=== PATIENT | male | born 1950 | race Caucasian/White ===

== ENCOUNTER 2022-04-16 21:21 | Inpatient (IN) | payer MEDICARE ==
[2022-04-16 21:45] LABS: #Eosinphils 0.1 thou/uL (0.0-0.7); #Lymphocytes 2.2 thou/uL (1.20-3.40); #Monocytes 0.9 thou/uL (0.11-0.59); #Neutrophils 16.7 thou/uL (1.40-6.50); %Eosinophils 0.5 % (0.0-10.0); %Lymphocytes 11.1 % (21.0-51.0); %Monocytes 4.5 % (0.0-10.0); Hemoglobin 13.2 g/dL (14.0-18.0); Mean Corpuscular HGB CONC 33.3 g/dL (32.0-36.0); Mean Corpuscular Hemoglobin 34.4 pg (27.0-31.0); Mean Platelet Volume 7.9 fL (7.4-10.4); Platelet Count 365 10x3/uL (130-400); Red Blood Cell (RBC) Count 3.84 mill/uL (4.70-6.10); White Blood Cell (WBC) Count 19.8 10x3/uL (4.8-10.8)
[2022-04-16] MEDS ORDERED: Dexamethasone 10 MG/ML VIAL ONE (22:00)
[2022-04-16] MEDS ORDERED: Vancomycin 1 GM/200 ML (FROZEN) BAG ONE (22:00)
[2022-04-16] MEDS ORDERED: Cefepime 2 GM VIAL ONE (22:00)
[2022-04-16 22:06] LABS: ALT (SGPT) 15 U/L (8-55); AST (SGOT) 24 U/L (5-34); Albumin 3.6 g/dL (3.4-4.8); Alkaline Phosphatase 68 U/L (40-110); Anion Gap 17 mmol/L (10-20); BUN (Urea Nitrogen) 22 mg/dL (8.4-25.7); Bilirubin, Total 0.7 mg/dL (0.2-1.2); Calc. Creatinine Clearance 0 mL/min (70-130); Calcium 9.3 mg/dL (7.8-10.44); Carbon Dioxide 24 mmol/L (23-31); Chloride 101 mmol/L (98-107); Estimated GFR 59; Globulin 4.1 g/dL (2.4-3.5); Glucose 135 mg/dL (80-115); Potassium 4.1 mmol/L (3.5-5.1); Protein, Total 7.7 g/dL (5.8-8.1); Sodium 138 mmol/L (136-145)
[2022-04-16 22:13] LABS: CK (CPK) 87 U/L (30-200); Lipase Less than 4 U/L (8-78)
[2022-04-16] MEDS ORDERED: Albuterol Sulfate 2.5 mg/3 ml Neb ONE (22:15)
[2022-04-16] MEDS ORDERED: Magnesium 2 GM/50 ML(in water) 2 GM in Premix Bag 1 BAG IVPB SCH (22:15)
[2022-04-16 22:30] LABS: Actual Bicarbonate (HCO3a) 23.8 mEq/L (22-28); Analyzer IN Cardio ER; Base Excess (BEa) -0.9 mEq/L (-2.0 to +3.0); CO2 Tension 39.5 mmHg (35.0-45.0); Calcium, Ionized (arterial) 1.12 mmol/L (1.12-1.30); Carboxyhemoglobin (COHb) 0.3 gm% (0.0-3.0); Hemoglobin (Hb) 11.1 g/dL (14.0-18.0); O2 Tension (PaO2), arterial 114.2 mmHg (> 80.0); Potassium - ABG Lab 3.37 mmol/L (3.70-5.30)
[2022-04-16 22:31] LABS: Puncture Site RBA
[2022-04-16 22:32] LABS: ALV-art Gradient 85.975 mmHg (0-20)
[2022-04-16 22:36] LABS: CKMB 2.2 ng/mL (0-6.6)
[2022-04-17 00:45] LABS: Lactic Acid 1.6 mmol/L (0.5-2.2)
[2022-04-17 00:57] LABS: SARS-CoV-2 NAA Rapid Test Not Detected (NotDetected)
[2022-04-17] MEDS ORDERED: Acetaminophen 325 MG TAB PO PRN (02:08)
[2022-04-17] MEDS ORDERED: Ondansetron PF 4 MG/2 ML Vial IVP PRN (02:08)
[2022-04-17 02:55] LABS: #Basophils 0.1 thou/uL (0.0-0.2); #Lymphocytes 0.2 thou/uL (1.20-3.40); #Monocytes 0.1 thou/uL (0.11-0.59); #Neutrophils 13.1 thou/uL (1.40-6.50); %Basophils 0.5 % (0.0-1.0); %Eosinophils 0.1 % (0.0-10.0); %Lymphocytes 1.6 % (21.0-51.0); %Monocytes 0.8 % (0.0-10.0); Hemoglobin 10.3 g/dL (14.0-18.0); Mean Corpuscular HGB CONC 31.3 g/dL (32.0-36.0); Mean Platelet Volume 7.7 fL (7.4-10.4); Platelet Count 262 10x3/uL (130-400); RBC Distribution Width 12.9 % (11.5-14.5); Red Blood Cell (RBC) Count 3.21 mill/uL (4.70-6.10); Troponin I 0.026 ng/mL (< 0.028); White Blood Cell (WBC) Count 13.5 10x3/uL (4.8-10.8)
[2022-04-17 03:37] LABS: Anion Gap 12 mmol/L (10-20); BUN (Urea Nitrogen) 20 mg/dL (8.4-25.7); Calc. Creatinine Clearance 0 mL/min (70-130); Calcium 7.9 mg/dL (7.8-10.44); Carbon Dioxide 24 mmol/L (23-31); Chloride 108 mmol/L (98-107); Estimated GFR 86; Glucose 162 mg/dL (80-115); Potassium 4.8 mmol/L (3.5-5.1); Sodium 139 mmol/L (136-145)
[2022-04-17 05:11] LABS: Troponin I 0.025 ng/mL (< 0.028)
[2022-04-17] MEDS ORDERED: methylPREDNISolone Sod Succ 40 MG VIAL ONE ×2 (05:59→16:04)
[2022-04-17] MEDS: methylPREDNISolone Sod Succ 40 MG VIAL IVP SCH ×2 (06:04→16:26)
[2022-04-17] MEDS ORDERED: Clopidogrel Bisulfate 75 MG TAB ONE (09:52)
[2022-04-17] MEDS ORDERED: Enoxaparin Sodium 40 MG/0.4 ML SYRINGE ONE (09:52)
[2022-04-17] MEDS: Enoxaparin Sodium 40 MG/0.4 ML SYRINGE SC SCH (10:00)
[2022-04-17] MEDS: Clopidogrel Bisulfate 75 MG TAB PO SCH (10:00)
[2022-04-17] MEDS ORDERED: Acetaminophen 325 MG TAB ONE (11:17)
[2022-04-17] MEDS ORDERED: Iopamidol-370 76% 500 ML 1 ML ONE (11:36)
[2022-04-17 16:36] LABS: Bilirubin Negative (Negative); Blood, Urine Trace (Negative); Glucose, Urine (Dipstick) 500 mg/dL (Negative); Ketone, Urine 15 mg/dL (Negative); Leukocyte Small (Negative); Nitrite Positive (Negative); Protein, Urine (Dipstick) Trace mg/dL (Neg-Trace); Specific Gravity, Urine 1.025 (1.005-1.030); Urobilinogen 0.2 mg/dL (Less than 2)
[2022-04-17 16:37] LABS: Clarity Hazy (Clear)
[2022-04-17 16:51] LABS: Bacteria/HPF 1+ HPF (None Seen); Squamous Epithelial 0-3 HPF (0-3); WBC/HPF 21-50 HPF (0-3)
[2022-04-17 17:00] LABS: Legionella Urinary Ag Negative (Negative); Strep pneumo Urine Ag NEGATIVE (NEGATIVE)
[2022-04-17] MEDS: Atorvastatin Calcium 40 MG TAB PO SCH (21:41)
[2022-04-18] MEDS: methylPREDNISolone Sod Succ 40 MG VIAL IVP SCH ×6 (00:09→23:26)
[2022-04-18] MEDS ORDERED: Ketorolac Tromethamine 30 MG/ML VIAL IVP SCH (02:00)
[2022-04-18 04:16] LABS: #Lymphocytes 0.5 thou/uL (1.20-3.40); #Monocytes 0.1 thou/uL (0.11-0.59); #Neutrophils 10.3 thou/uL (1.40-6.50); %Lymphocytes 4.1 % (21.0-51.0); %Monocytes 1.2 % (0.0-10.0); %Neutrophils 94.6 % (42.0-75.0); Hemoglobin 9.3 g/dL (14.0-18.0); Mean Corpuscular Hemoglobin 33.8 pg (27.0-31.0); Mean Platelet Volume 8.1 fL (7.4-10.4); Platelet Count 255 10x3/uL (130-400); Red Blood Cell (RBC) Count 2.74 mill/uL (4.70-6.10); White Blood Cell (WBC) Count 10.9 10x3/uL (4.8-10.8)
[2022-04-18 04:32] LABS: Anion Gap 13 mmol/L (10-20); BUN (Urea Nitrogen) 24 mg/dL (8.4-25.7); Calc. Creatinine Clearance 54 mL/min (70-130); Calcium 8.2 mg/dL (7.8-10.44); Carbon Dioxide 23 mmol/L (23-31); Chloride 107 mmol/L (98-107); Estimated GFR 97; Glucose 203 mg/dL (80-115); Potassium 3.6 mmol/L (3.5-5.1); Sodium 139 mmol/L (136-145)
[2022-04-18] MEDS: Clopidogrel Bisulfate 75 MG TAB PO SCH (08:30)
[2022-04-18] MEDS: Enoxaparin Sodium 40 MG/0.4 ML SYRINGE SC SCH (08:30)
[2022-04-18] MEDS: Nicotine 14 MG PATCH TD SCH (18:08)
[2022-04-18] MEDS: HYDROcodone/Acetaminophen 10/325 mg Tablet PO PRN (18:09)
[2022-04-18] MEDS: Mometasone/Formoterol 200/5 60 PUFF INH SCH (18:11)
[2022-04-18] MEDS: Ipratropium Bromide 2.5 ml Neb NEB SCH ×2 (18:12→22:51)
[2022-04-18] MEDS: Atorvastatin Calcium 40 MG TAB PO SCH (20:47)
[2022-04-19] MEDS: HYDROcodone/Acetaminophen 10/325 mg Tablet PO PRN ×4 (00:25→20:45)
[2022-04-19 05:06] LABS: #Lymphocytes 0.4 thou/uL (1.20-3.40); #Monocytes 0.2 thou/uL (0.11-0.59); #Neutrophils 11.3 thou/uL (1.40-6.50); %Eosinophils 0.1 % (0.0-10.0); %Lymphocytes 3.1 % (21.0-51.0); %Monocytes 1.4 % (0.0-10.0); %Neutrophils 95.4 % (42.0-75.0); Hemoglobin 9.1 g/dL (14.0-18.0); Mean Corpuscular HGB CONC 31.7 g/dL (32.0-36.0); Mean Platelet Volume 8.1 fL (7.4-10.4); Platelet Count 280 10x3/uL (130-400); Red Blood Cell (RBC) Count 2.83 mill/uL (4.70-6.10); White Blood Cell (WBC) Count 11.8 10x3/uL (4.8-10.8)
[2022-04-19 05:28] LABS: Anion Gap 10 mmol/L (10-20); BUN (Urea Nitrogen) 31 mg/dL (8.4-25.7); Calc. Creatinine Clearance 47 mL/min (70-130); Calcium 8.5 mg/dL (7.8-10.44); Carbon Dioxide 25 mmol/L (23-31); Chloride 105 mmol/L (98-107); Estimated GFR 90; Glucose 286 mg/dL (80-115); Sodium 136 mmol/L (136-145)
[2022-04-19] MEDS: methylPREDNISolone Sod Succ 40 MG VIAL IVP SCH ×4 (06:35→23:51)
[2022-04-19] MEDS: Ipratropium Bromide 2.5 ml Neb NEB SCH ×2 (07:30→14:05)
[2022-04-19] MEDS: Mometasone/Formoterol 200/5 60 PUFF INH SCH ×2 (07:37→20:46)
[2022-04-19] MEDS: Mirtazapine 15 MG TAB PO SCH (09:20)
[2022-04-19] MEDS: Clopidogrel Bisulfate 75 MG TAB PO SCH (09:20)
[2022-04-19] MEDS: Enoxaparin Sodium 30 MG/0.3 ML SYRINGE SC SCH (10:53)
[2022-04-19] MEDS: Nicotine 14 MG PATCH TD SCH (17:05)
[2022-04-19] MEDS: guaiFENesin/DM ER PO SCH (20:44)
[2022-04-19] MEDS: Atorvastatin Calcium 40 MG TAB PO SCH (20:44)
[2022-04-20] MEDS: HYDROcodone/Acetaminophen 10/325 mg Tablet PO PRN ×4 (03:52→23:22)
[2022-04-20] MEDS: methylPREDNISolone Sod Succ 40 MG VIAL IVP SCH ×4 (05:24→23:22)
[2022-04-20] MEDS: Mometasone/Formoterol 200/5 60 PUFF INH SCH ×2 (06:34→20:08)
[2022-04-20] MEDS: Enoxaparin Sodium 30 MG/0.3 ML SYRINGE SC SCH (08:41)
[2022-04-20] MEDS: Mirtazapine 15 MG TAB PO SCH (08:41)
[2022-04-20] MEDS: guaiFENesin/DM ER PO SCH ×2 (08:41→20:02)
[2022-04-20] MEDS: Clopidogrel Bisulfate 75 MG TAB PO SCH (08:41)
[2022-04-20] MEDS ORDERED: FLU VACC QS2022-23(65YR UP)/PF 240 MCG/0.7 ML SYRINGE IM ONE (09:00)
[2022-04-20] MEDS: Nicotine 14 MG PATCH TD SCH (16:29)
[2022-04-20 17:46] VITALS: BMI 14.6
[2022-04-20] MEDS: Atorvastatin Calcium 40 MG TAB PO SCH (20:02)
[2022-04-21] MEDS: HYDROcodone/Acetaminophen 10/325 mg Tablet PO PRN ×4 (05:20→22:38)
[2022-04-21] MEDS: methylPREDNISolone Sod Succ 40 MG VIAL IVP SCH ×2 (05:20→20:53)
[2022-04-21] MEDS: Mometasone/Formoterol 200/5 60 PUFF INH SCH ×2 (07:47→18:24)
[2022-04-21] MEDS: Clopidogrel Bisulfate 75 MG TAB PO SCH (08:35)
[2022-04-21] MEDS: Mirtazapine 15 MG TAB PO SCH (08:35)
[2022-04-21] MEDS: guaiFENesin/DM ER PO SCH ×2 (08:35→20:53)
[2022-04-21] MEDS: Enoxaparin Sodium 30 MG/0.3 ML SYRINGE SC SCH (08:35)
[2022-04-21] MEDS ORDERED: Megestrol Acetate 40 MG TAB PO SCH (12:00)
[2022-04-21] MEDS: Nicotine 14 MG PATCH TD SCH (16:57)
[2022-04-21] MEDS: Atorvastatin Calcium 40 MG TAB PO SCH (20:52)
[2022-04-21] MEDS: Megestrol Acetate 40 MG TAB PO SCH (20:53)
[2022-04-22] MEDS: HYDROcodone/Acetaminophen 10/325 mg Tablet PO PRN ×4 (05:16→23:58)
[2022-04-22] MEDS: Mometasone/Formoterol 200/5 60 PUFF INH SCH ×2 (07:05→19:08)
[2022-04-22] MEDS ORDERED: Dextrose 50% Abboject 50 ML SYRINGE SLOW IVP PRN (08:05)
[2022-04-22] MEDS ORDERED: Dextrose 5% in Water 1,000 ML IV PRN (08:05)
[2022-04-22] MEDS: Mirtazapine 15 MG TAB PO SCH (08:37)
[2022-04-22] MEDS: guaiFENesin/DM ER PO SCH ×2 (08:37→21:09)
[2022-04-22] MEDS: Clopidogrel Bisulfate 75 MG TAB PO SCH (08:37)
[2022-04-22] MEDS: Enoxaparin Sodium 30 MG/0.3 ML SYRINGE SC SCH (08:38)
[2022-04-22] MEDS: methylPREDNISolone Sod Succ 40 MG VIAL IVP SCH ×2 (08:38→21:09)
[2022-04-22] MEDS: Megestrol Acetate 40 MG TAB PO SCH ×2 (11:21→21:23)
[2022-04-22] MEDS: HumaLOG 300 UNITS/3 ML VIAL SC PRN ×3 (11:22→22:13)
[2022-04-22] MEDS: Nicotine 14 MG PATCH TD SCH (17:48)
[2022-04-22] MEDS: Atorvastatin Calcium 40 MG TAB PO SCH (21:09)
[2022-04-23 05:31] LABS: Anion Gap 10 mmol/L (10-20); BUN (Urea Nitrogen) 26 mg/dL (8.4-25.7); Calc. Creatinine Clearance 56 mL/min (70-130); Calcium 8.4 mg/dL (7.8-10.44); Carbon Dioxide 30 mmol/L (23-31); Chloride 101 mmol/L (98-107); Estimated GFR 97; Glucose 203 mg/dL (80-115); Magnesium 1.7 mg/dL (1.6-2.6); Potassium 4.9 mmol/L (3.5-5.1); Sodium 136 mmol/L (136-145)
[2022-04-23] MEDS: HYDROcodone/Acetaminophen 10/325 mg Tablet PO PRN ×3 (05:32→19:16)
[2022-04-23 05:35] LABS: Hemoglobin A1c 5.9 % (4.0-6.0)
[2022-04-23] MEDS: HumaLOG 300 UNITS/3 ML VIAL SC PRN ×3 (05:36→16:59)
[2022-04-23] MEDS: Mometasone/Formoterol 200/5 60 PUFF INH SCH ×2 (06:59→18:17)
[2022-04-23] MEDS: Mirtazapine 15 MG TAB PO SCH (09:20)
[2022-04-23] MEDS: Clopidogrel Bisulfate 75 MG TAB PO SCH (09:20)
[2022-04-23] MEDS: Enoxaparin Sodium 30 MG/0.3 ML SYRINGE SC SCH (09:21)
[2022-04-23] MEDS: guaiFENesin/DM ER PO SCH ×2 (09:21→20:59)
[2022-04-23] MEDS: methylPREDNISolone Sod Succ 40 MG VIAL IVP SCH (09:23)
[2022-04-23] MEDS: Megestrol Acetate 40 MG TAB PO SCH ×2 (10:18→20:59)
[2022-04-23] MEDS: HumaLOG 300 UNITS/3 ML VIAL SC SCH ×2 (12:48→16:59)
[2022-04-23] MEDS: Nicotine 14 MG PATCH TD SCH (16:59)
[2022-04-23] MEDS: Atorvastatin Calcium 40 MG TAB PO SCH (20:59)
[2022-04-24] MEDS: HYDROcodone/Acetaminophen 10/325 mg Tablet PO PRN ×4 (01:22→21:28)
[2022-04-24 05:18] LABS: Magnesium 1.6 mg/dL (1.6-2.6)
[2022-04-24 05:25] LABS: Anion Gap 9 mmol/L (10-20); BUN (Urea Nitrogen) 25 mg/dL (8.4-25.7); Calc. Creatinine Clearance 55 mL/min (70-130); Calcium 8.4 mg/dL (7.8-10.44); Carbon Dioxide 30 mmol/L (23-31); Chloride 100 mmol/L (98-107); Estimated GFR 97; Glucose 189 mg/dL (80-115); Potassium 4.4 mmol/L (3.5-5.1); Sodium 135 mmol/L (136-145)
[2022-04-24] MEDS: Mometasone/Formoterol 200/5 60 PUFF INH SCH ×2 (07:11→19:44)
[2022-04-24] MEDS: HumaLOG 300 UNITS/3 ML VIAL SC SCH ×3 (08:56→18:17)
[2022-04-24] MEDS: guaiFENesin/DM ER PO SCH ×2 (08:57→21:27)
[2022-04-24] MEDS: Enoxaparin Sodium 30 MG/0.3 ML SYRINGE SC SCH (08:57)
[2022-04-24] MEDS: predniSONE 20 MG TAB PO SCH (08:57)
[2022-04-24] MEDS: Clopidogrel Bisulfate 75 MG TAB PO SCH (08:57)
[2022-04-24] MEDS: Magnesium Oxide 400 MG TAB PO SCH (08:58)
[2022-04-24] MEDS: Mirtazapine 15 MG TAB PO SCH (08:58)
[2022-04-24] MEDS ORDERED: Magnesium Sulfate In Water 4 GM in Premix Bag 1 BAG IVPB SCH (09:00)
[2022-04-24] MEDS: Megestrol Acetate 40 MG TAB PO SCH ×2 (09:59→21:28)
[2022-04-24] MEDS: Nicotine 14 MG PATCH TD SCH (15:27)
[2022-04-24] MEDS: HumaLOG 300 UNITS/3 ML VIAL SC PRN (21:27)
[2022-04-24] MEDS: Atorvastatin Calcium 40 MG TAB PO SCH (21:28)
[2022-04-25] MEDS: HYDROcodone/Acetaminophen 10/325 mg Tablet PO PRN ×3 (05:07→18:03)
[2022-04-25 05:32] LABS: Anion Gap 12 mmol/L (10-20); BUN (Urea Nitrogen) 26 mg/dL (8.4-25.7); Calc. Creatinine Clearance 53 mL/min (70-130); Calcium 8.1 mg/dL (7.8-10.44); Carbon Dioxide 27 mmol/L (23-31); Chloride 100 mmol/L (98-107); Estimated GFR 95; Glucose 198 mg/dL (80-115); Magnesium 2.1 mg/dL (1.6-2.6); Potassium 4.2 mmol/L (3.5-5.1); Sodium 135 mmol/L (136-145)
[2022-04-25] MEDS: Mometasone/Formoterol 200/5 60 PUFF INH SCH ×2 (07:30→18:40)
[2022-04-25] MEDS: Enoxaparin Sodium 30 MG/0.3 ML SYRINGE SC SCH (09:37)
[2022-04-25] MEDS: Megestrol Acetate 40 MG TAB PO SCH ×2 (09:37→21:07)
[2022-04-25] MEDS: Mirtazapine 15 MG TAB PO SCH (09:38)
[2022-04-25] MEDS: predniSONE 20 MG TAB PO SCH (09:38)
[2022-04-25] MEDS: guaiFENesin/DM ER PO SCH ×2 (09:38→21:08)
[2022-04-25] MEDS: Magnesium Oxide 400 MG TAB PO SCH (09:38)
[2022-04-25] MEDS: Clopidogrel Bisulfate 75 MG TAB PO SCH (09:38)
[2022-04-25] MEDS: HumaLOG 300 UNITS/3 ML VIAL SC SCH ×3 (09:38→16:34)
[2022-04-25 13:37] LABS: #Lymphocytes 0.2 thou/uL (1.20-3.40); #Monocytes 0.4 thou/uL (0.11-0.59); #Neutrophils 18.4 thou/uL (1.40-6.50); %Eosinophils 0.2 % (0.0-10.0); %Lymphocytes 1.1 % (21.0-51.0); %Neutrophils 96.7 % (42.0-75.0); Hemoglobin 11.2 g/dL (14.0-18.0); Mean Corpuscular HGB CONC 31.9 g/dL (32.0-36.0); Mean Corpuscular Hemoglobin 32.1 pg (27.0-31.0); Mean Platelet Volume 7.5 fL (7.4-10.4); Platelet Count 278 10x3/uL (130-400); RBC Distribution Width 14.1 % (11.5-14.5)
[2022-04-25 13:50] LABS: Anion Gap 10 mmol/L (10-20); BUN (Urea Nitrogen) 24 mg/dL (8.4-25.7); Calc. Creatinine Clearance 48 mL/min (70-130); Calcium 8.3 mg/dL (7.8-10.44); Carbon Dioxide 28 mmol/L (23-31); Chloride 102 mmol/L (98-107); Estimated GFR 93; Glucose 162 mg/dL (80-115); Potassium 4.9 mmol/L (3.5-5.1); Sodium 135 mmol/L (136-145)
[2022-04-25 13:56] LABS: Troponin I Less than 0.010 ng/mL (< 0.028)
[2022-04-25] MEDS: Nicotine 14 MG PATCH TD SCH (16:37)
[2022-04-25] MEDS: Atorvastatin Calcium 40 MG TAB PO SCH (21:08)
[2022-04-26] MEDS: HYDROcodone/Acetaminophen 10/325 mg Tablet PO PRN ×3 (00:13→13:23)
[2022-04-26] MEDS: HumaLOG 300 UNITS/3 ML VIAL SC PRN (06:05)
[2022-04-26] MEDS: Mometasone/Formoterol 200/5 60 PUFF INH SCH (07:09)
[2022-04-26] MEDS: Clopidogrel Bisulfate 75 MG TAB PO SCH (09:29)
[2022-04-26] MEDS: Magnesium Oxide 400 MG TAB PO SCH (09:29)
[2022-04-26] MEDS: Enoxaparin Sodium 30 MG/0.3 ML SYRINGE SC SCH (09:29)
[2022-04-26] MEDS: Mirtazapine 15 MG TAB PO SCH (09:30)
[2022-04-26] MEDS: Megestrol Acetate 40 MG TAB PO SCH (09:30)
[2022-04-26] MEDS: HumaLOG 300 UNITS/3 ML VIAL SC SCH ×2 (09:30→13:35)
[2022-04-26] MEDS: guaiFENesin/DM ER PO SCH (09:30)
[2022-04-26] MEDS: predniSONE 20 MG TAB PO SCH (09:30)
[2022-04-26 12:01] VITALS: BP 145/70; TEMP 97.4
== END 2022-04-26 13:38 | disposition home or self-care (01) | DRG 193 ==
LOC: ERS 21:21 → ERHOLD 23:42 → 2NO 04-17 17:35
PROVIDERS: ADMIT Internal Medicine; ATTEND Internal Medicine
DX: J18.9 Pneumonia, unspecified organism (principal); E43 Unspecified severe protein-calorie malnutrition; J96.21 Acute and chronic respiratory failure with hypoxia; J44.1 Chronic obstructive pulmonary disease with (acute) exacerbation; Z68.1 Body mass index [BMI] 19.9 or less, adult; J44.0 Chronic obstructive pulmonary disease with (acute) lower respiratory infection; N17.9 Acute kidney failure, unspecified; E87.20 Acidosis, unspecified; I24.8 Other forms of acute ischemic heart disease; E78.5 Hyperlipidemia, unspecified; F17.210 Nicotine dependence, cigarettes, uncomplicated; D64.9 Anemia, unspecified; R73.9 Hyperglycemia, unspecified; T38.0X5A Adverse effect of glucocorticoids and synthetic analogues, initial encounter; Z20.822 Contact with and (suspected) exposure to COVID-19; I10 Essential (primary) hypertension; I25.10 Atherosclerotic heart disease of native coronary artery without angina pectoris; Z79.02 Long term (current) use of antithrombotics/antiplatelets; Z79.899 Other long term (current) drug therapy; Z88.2 Allergy status to sulfonamides; Z82.49 Family history of ischemic heart disease and other diseases of the circulatory system
CPT/HCPCS: 36415; 36416; 36600; 71045; 71275; 80048; 80053; 81003; 81015; 82550; 82553; 82805; 83036; 83605; 83690; 83735; 83880; 84484; 85025; 87040; 87070; 87086; 87205; 87449; 87804; 87811; 87899; 93005; 93010; 94644; 94660; 94664; 94760; J0692; J1100; J1650; J1815; J1885; J1956; J2405; J2920; J3370-JW; J3475; J7512; J7611; J7620; Q9967; S0179; U0002

== ENCOUNTER 2022-04-30 14:39 | Inpatient (IN) | payer MEDICARE ==
[2022-04-30 15:21] LABS: #Lymphocytes 0.9 thou/uL (1.20-3.40); #Monocytes 0.5 thou/uL (0.11-0.59); #Neutrophils 7.9 thou/uL (1.40-6.50); %Basophils 0.5 % (0.0-1.0); %Eosinophils 0.4 % (0.0-10.0); %Lymphocytes 9.4 % (21.0-51.0); %Monocytes 4.8 % (0.0-10.0); %Neutrophils 84.9 % (42.0-75.0); Hemoglobin 14.1 g/dL (14.0-18.0); Mean Corpuscular HGB CONC 32.9 g/dL (32.0-36.0); Mean Corpuscular Hemoglobin 32.6 pg (27.0-31.0); Mean Corpuscular Volume 99.4 fl (78.0-98.0); Mean Platelet Volume 8.1 fL (7.4-10.4); Platelet Count 146 10x3/uL (130-400); RBC Distribution Width 14.7 % (11.5-14.5); Red Blood Cell (RBC) Count 4.33 mill/uL (4.70-6.10); White Blood Cell (WBC) Count 9.3 10x3/uL (4.8-10.8)
[2022-04-30 15:31] LABS: PTT 28.9 sec (22.9-36.1); Prothrombin Time 13.6 sec (12.0-14.7)
[2022-04-30 15:38] LABS: ALT (SGPT) 32 U/L (8-55); AST (SGOT) 30 U/L (5-34); Albumin 3.4 g/dL (3.4-4.8); Alkaline Phosphatase 67 U/L (40-110); Anion Gap 15 mmol/L (10-20); BUN (Urea Nitrogen) 24 mg/dL (8.4-25.7); Bilirubin, Total 0.9 mg/dL (0.2-1.2); Calc. Creatinine Clearance 0 mL/min (70-130); Calcium 8.3 mg/dL (7.8-10.44); Carbon Dioxide 19 mmol/L (23-31); Chloride 109 mmol/L (98-107); Estimated GFR 97; Globulin 3.1 g/dL (2.4-3.5); Glucose 94 mg/dL (80-115); Magnesium 1.9 mg/dL (1.6-2.6); Potassium 4.4 mmol/L (3.5-5.1); Protein, Total 6.5 g/dL (5.8-8.1); Sodium 139 mmol/L (136-145)
[2022-04-30] MEDS ORDERED: Cefepime 2 GM VIAL ONE (15:54)
[2022-04-30] MEDS ORDERED: Magnesium 2 GM/50 ML BAG (IN WATER) ONE (15:54)
[2022-04-30] MEDS ORDERED: Vancomycin 1 GM/200 ML (FROZEN) BAG ONE (15:54)
[2022-04-30] MEDS ORDERED: methylPREDNISolone Sod Succ/PF 125 MG/2 ML VIAL ONE (15:54)
[2022-04-30] MEDS ORDERED: HYDROcodone/Acetaminophen 10/325 mg Tablet ONE (16:20)
[2022-04-30 16:26] LABS: SARS-CoV-2 NAA Rapid Test DETECTED (NotDetected)
[2022-04-30] MEDS ORDERED: REMDESIVIR IVPB PRN (17:21)
[2022-04-30] MEDS ORDERED: Non-Formulary Item 1 EACH (Tiotropium Bromide 4 GM Inhaler) INH PRN (17:23)
[2022-04-30] MEDS ORDERED: Senokot S 8.6-50 MG TAB PO PRN (17:24)
[2022-04-30] MEDS ORDERED: Ondansetron PF 4 MG/2 ML Vial IVP PRN (17:24)
[2022-04-30] MEDS ORDERED: Ondansetron ODT 4 MG TAB PO PRN (17:24)
[2022-04-30] MEDS ORDERED: guaiFENesin 200 MG TAB PO PRN (17:28)
[2022-04-30 18:13] LABS: Lactic Acid 0.8 mmol/L (0.5-2.2)
[2022-04-30] MEDS ORDERED: Mometasone 200 MCG/Formoterol 5 MCG 120 PUFF INHALER INH SCH (18:30)
[2022-04-30] MEDS ORDERED: REMDESIVIR 200 MG in Sodium Chloride 0.9% 250 ML 210 ML IV SCH (21:00)
[2022-04-30 21:28] VITALS: BMI 15.3
[2022-04-30] MEDS: Atorvastatin Calcium 40 MG TAB PO SCH (22:11)
[2022-04-30] MEDS: Doxycycline 100 MG CAP PO SCH (22:11)
[2022-04-30] MEDS: Acetaminophen 325 MG TAB PO PRN (22:11)
[2022-04-30] MEDS: Megestrol Acetate 40 MG TAB PO SCH (22:11)
[2022-04-30] MEDS: Enoxaparin Sodium 40 MG/0.4 ML SYRINGE SC SCH (22:12)
[2022-04-30] MEDS: Nicotine 14 MG PATCH TD SCH (22:17)
[2022-04-30] MEDS: Albuterol 200 PUFF (6.7GM INHALER) INH SCH ×2 (22:17→22:32)
[2022-05-01] MEDS: Albuterol 200 PUFF (6.7GM INHALER) INH SCH ×4 (01:26→20:15)
[2022-05-01] MEDS: Mometasone/Formoterol 200/5 60 PUFF INH SCH ×2 (06:09→20:14)
[2022-05-01 07:36] LABS: #Lymphocytes 0.4 thou/uL (1.20-3.40); #Monocytes 0.1 thou/uL (0.11-0.59); #Neutrophils 2.7 thou/uL (1.40-6.50); %Eosinophils 0.2 % (0.0-10.0); %Lymphocytes 11.8 % (21.0-51.0); %Monocytes 4.1 % (0.0-10.0); Hemoglobin 11.1 g/dL (14.0-18.0); Mean Corpuscular HGB CONC 30.7 g/dL (32.0-36.0); Mean Corpuscular Hemoglobin 31.7 pg (27.0-31.0); Mean Platelet Volume 8.1 fL (7.4-10.4); Platelet Count 126 10x3/uL (130-400); RBC Distribution Width 14.2 % (11.5-14.5); White Blood Cell (WBC) Count 3.2 10x3/uL (4.8-10.8)
[2022-05-01 07:45] LABS: Anion Gap 9 mmol/L (10-20); BUN (Urea Nitrogen) 26 mg/dL (8.4-25.7); Calc. Creatinine Clearance 60 mL/min (70-130); Calcium 7.6 mg/dL (7.8-10.44); Carbon Dioxide 20 mmol/L (23-31); Chloride 112 mmol/L (98-107); Estimated GFR 98; Glucose 179 mg/dL (80-115); Potassium 4.5 mmol/L (3.5-5.1); Sodium 136 mmol/L (136-145)
[2022-05-01] MEDS ORDERED: Dexamethasone 6 MG in Sodium Chloride 0.9% 50 ML IVPB SCH (08:00)
[2022-05-01] MEDS ORDERED: Dexamethasone 10 MG/ML VIAL SLOW IVP SCH (08:45)
[2022-05-01] MEDS: Doxycycline 100 MG CAP PO SCH ×2 (09:11→20:56)
[2022-05-01] MEDS: Mirtazapine 15 MG TAB PO SCH (09:11)
[2022-05-01] MEDS: Clopidogrel Bisulfate 75 MG TAB PO SCH (09:11)
[2022-05-01] MEDS: Zinc Sulfate 220 MG CAP PO SCH (09:11)
[2022-05-01] MEDS: Megestrol Acetate 40 MG TAB PO SCH ×2 (09:11→20:56)
[2022-05-01] MEDS: Ascorbic Acid 500 mg Chewable Tablet PO SCH (09:11)
[2022-05-01] MEDS: Magnesium Oxide 400 MG TAB PO SCH (09:13)
[2022-05-01] MEDS: HYDROcodone/Acetaminophen 10/325 mg Tablet PO PRN ×3 (13:28→22:19)
[2022-05-01] MEDS: Nicotine 14 MG PATCH TD SCH (18:12)
[2022-05-01] MEDS: Atorvastatin Calcium 40 MG TAB PO SCH (20:56)
[2022-05-01] MEDS: REMDESIVIR 100 MG in Sodium Chloride 0.9% 250 ML 230 ML IV SCH (20:56)
[2022-05-01] MEDS: Enoxaparin Sodium 40 MG/0.4 ML SYRINGE SC SCH (20:56)
[2022-05-02] MEDS: Albuterol 200 PUFF (6.7GM INHALER) INH SCH ×4 (01:05→19:05)
[2022-05-02] MEDS: HYDROcodone/Acetaminophen 10/325 mg Tablet PO PRN ×4 (02:58→20:23)
[2022-05-02 07:34] LABS: #Lymphocytes 0.5 thou/uL (1.20-3.40); #Monocytes 0.3 thou/uL (0.11-0.59); #Neutrophils 6.3 thou/uL (1.40-6.50); %Eosinophils 0.2 % (0.0-10.0); %Lymphocytes 6.7 % (21.0-51.0); %Monocytes 3.5 % (0.0-10.0); %Neutrophils 89.6 % (42.0-75.0); Hemoglobin 10.3 g/dL (14.0-18.0); Mean Corpuscular HGB CONC 31.3 g/dL (32.0-36.0); Mean Corpuscular Hemoglobin 32.5 pg (27.0-31.0); Mean Platelet Volume 8.7 fL (7.4-10.4); Platelet Count 110 10x3/uL (130-400); RBC Distribution Width 14.2 % (11.5-14.5); Red Blood Cell (RBC) Count 3.16 mill/uL (4.70-6.10); White Blood Cell (WBC) Count 7.1 10x3/uL (4.8-10.8)
[2022-05-02 07:51] LABS: Anion Gap 11 mmol/L (10-20); BUN (Urea Nitrogen) 22 mg/dL (8.4-25.7); Calc. Creatinine Clearance 52 mL/min (70-130); Calcium 7.7 mg/dL (7.8-10.44); Carbon Dioxide 16 mmol/L (23-31); Chloride 111 mmol/L (98-107); Estimated GFR 93; Glucose 387 mg/dL (80-115); Potassium 4.4 mmol/L (3.5-5.1); Sodium 134 mmol/L (136-145)
[2022-05-02] MEDS: Mometasone/Formoterol 200/5 60 PUFF INH SCH ×2 (09:44→19:04)
[2022-05-02] MEDS: Zinc Sulfate 220 MG CAP PO SCH (09:45)
[2022-05-02] MEDS: Mirtazapine 15 MG TAB PO SCH (09:45)
[2022-05-02] MEDS: Doxycycline 100 MG CAP PO SCH ×2 (09:45→20:22)
[2022-05-02] MEDS: Megestrol Acetate 40 MG TAB PO SCH ×2 (09:45→20:22)
[2022-05-02] MEDS: Clopidogrel Bisulfate 75 MG TAB PO SCH (09:46)
[2022-05-02] MEDS: Magnesium Oxide 400 MG TAB PO SCH (09:46)
[2022-05-02] MEDS: Ascorbic Acid 500 mg Chewable Tablet PO SCH (09:46)
[2022-05-02] MEDS: Nicotine 14 MG PATCH TD SCH (16:39)
[2022-05-02] MEDS ORDERED: Dexamethasone 4 mg/ml Vial SLOW IVP SCH (18:15)
[2022-05-02] MEDS: Atorvastatin Calcium 40 MG TAB PO SCH (20:22)
[2022-05-02] MEDS: Enoxaparin Sodium 40 MG/0.4 ML SYRINGE SC SCH (20:22)
[2022-05-02] MEDS: REMDESIVIR 100 MG in Sodium Chloride 0.9% 250 ML 230 ML IV SCH (20:24)
[2022-05-03] MEDS: HYDROcodone/Acetaminophen 10/325 mg Tablet PO PRN ×6 (01:12→23:55)
[2022-05-03] MEDS: Albuterol 200 PUFF (6.7GM INHALER) INH SCH ×5 (01:14→23:55)
[2022-05-03] MEDS: Mometasone/Formoterol 200/5 60 PUFF INH SCH ×2 (05:47→17:35)
[2022-05-03 07:13] LABS: ALT (SGPT) 22 U/L (8-55); AST (SGOT) 12 U/L (5-34); Albumin 2.8 g/dL (3.4-4.8); Alkaline Phosphatase 53 U/L (40-110); Anion Gap 15 mmol/L (10-20); BUN (Urea Nitrogen) 28 mg/dL (8.4-25.7); Bilirubin, Direct 0.2 mg/dL (0.1-0.3); Bilirubin, Total 0.4 mg/dL (0.2-1.2); Calc. Creatinine Clearance 55 mL/min (70-130); Calcium 7.9 mg/dL (7.8-10.44); Carbon Dioxide 19 mmol/L (23-31); Chloride 108 mmol/L (98-107); Estimated GFR 95; Glucose 205 mg/dL (80-115); Potassium 5.4 mmol/L (3.5-5.1); Protein, Total 5.2 g/dL (5.8-8.1); Sodium 137 mmol/L (136-145)
[2022-05-03 07:35] LABS: #Lymphocytes 0.3 thou/uL (1.20-3.40); #Monocytes 0.1 thou/uL (0.11-0.59); #Neutrophils 7.1 thou/uL (1.40-6.50); %Basophils 0.1 % (0.0-1.0); %Eosinophils 0.2 % (0.0-10.0); %Lymphocytes 4.1 % (21.0-51.0); %Monocytes 1.8 % (0.0-10.0); %Neutrophils 93.8 % (42.0-75.0); Hemoglobin 10.8 g/dL (14.0-18.0); Mean Corpuscular HGB CONC 31.6 g/dL (32.0-36.0); Mean Corpuscular Hemoglobin 32.4 pg (27.0-31.0); Mean Platelet Volume 8.2 fL (7.4-10.4); Platelet Count 119 10x3/uL (130-400); RBC Distribution Width 14.2 % (11.5-14.5); Red Blood Cell (RBC) Count 3.35 mill/uL (4.70-6.10); White Blood Cell (WBC) Count 7.6 10x3/uL (4.8-10.8)
[2022-05-03] MEDS: Ascorbic Acid 500 mg Chewable Tablet PO SCH (08:22)
[2022-05-03] MEDS: Clopidogrel Bisulfate 75 MG TAB PO SCH (08:22)
[2022-05-03] MEDS: Megestrol Acetate 40 MG TAB PO SCH ×2 (08:22→19:57)
[2022-05-03] MEDS: Doxycycline 100 MG CAP PO SCH ×2 (08:22→19:57)
[2022-05-03] MEDS: Mirtazapine 15 MG TAB PO SCH (08:22)
[2022-05-03] MEDS: Magnesium Oxide 400 MG TAB PO SCH (08:22)
[2022-05-03] MEDS: Zinc Sulfate 220 MG CAP PO SCH (08:22)
[2022-05-03] MEDS: Dexamethasone 4 mg/ml Vial SLOW IVP SCH (08:23)
[2022-05-03] MEDS: Acetaminophen 325 MG TAB PO PRN (08:23)
[2022-05-03] MEDS: Nicotine 14 MG PATCH TD SCH (17:45)
[2022-05-03 18:17] LABS: Potassium 5.1 mmol/L (3.5-5.1)
[2022-05-03] MEDS: Atorvastatin Calcium 40 MG TAB PO SCH (19:57)
[2022-05-03] MEDS: REMDESIVIR 100 MG in Sodium Chloride 0.9% 250 ML 230 ML IV SCH (20:32)
[2022-05-03] MEDS ORDERED: Enoxaparin Sodium 30 MG/0.3 ML SYRINGE SC SCH (21:00)
[2022-05-04] MEDS: HYDROcodone/Acetaminophen 10/325 mg Tablet PO PRN ×3 (05:13→16:25)
[2022-05-04] MEDS: Mometasone/Formoterol 200/5 60 PUFF INH SCH (05:14)
[2022-05-04] MEDS: Albuterol 200 PUFF (6.7GM INHALER) INH SCH ×2 (05:14→13:25)
[2022-05-04 06:42] LABS: ALT (SGPT) 20 U/L (8-55); AST (SGOT) 11 U/L (5-34); Albumin 2.7 g/dL (3.4-4.8); Alkaline Phosphatase 59 U/L (40-110); Anion Gap 11 mmol/L (10-20); BUN (Urea Nitrogen) 28 mg/dL (8.4-25.7); Bilirubin, Direct 0.1 mg/dL (0.1-0.3); Bilirubin, Total 0.3 mg/dL (0.2-1.2); Calc. Creatinine Clearance 42 mL/min (70-130); Calcium 8.4 mg/dL (7.8-10.44); Carbon Dioxide 22 mmol/L (23-31); Chloride 105 mmol/L (98-107); Estimated GFR 75; Protein, Total 5.2 g/dL (5.8-8.1); Sodium 133 mmol/L (136-145)
[2022-05-04 06:56] LABS: Glucose 420 mg/dL (80-115)
[2022-05-04] MEDS: Ascorbic Acid 500 mg Chewable Tablet PO SCH (08:01)
[2022-05-04] MEDS: Doxycycline 100 MG CAP PO SCH (08:01)
[2022-05-04] MEDS: Magnesium Oxide 400 MG TAB PO SCH (08:01)
[2022-05-04] MEDS: Mirtazapine 15 MG TAB PO SCH (08:02)
[2022-05-04] MEDS: Zinc Sulfate 220 MG CAP PO SCH (08:02)
[2022-05-04] MEDS: Clopidogrel Bisulfate 75 MG TAB PO SCH (08:02)
[2022-05-04] MEDS: Megestrol Acetate 40 MG TAB PO SCH (08:02)
[2022-05-04] MEDS: Dexamethasone 4 mg/ml Vial SLOW IVP SCH (08:02)
[2022-05-04] MEDS ORDERED: REMDESIVIR 100 MG in Sodium Chloride 0.9% 250 ML 230 ML IV SCH (12:00)
[2022-05-04 12:05] VITALS: BP 158/94; TEMP 97.7
[2022-05-04] MEDS: Nicotine 14 MG PATCH TD SCH (15:45)
== END 2022-05-04 17:01 | disposition home or self-care (01) | DRG 177 ==
LOC: ERS 14:39 → T4-B 17:04
PROVIDERS: ADMIT Internal Medicine; ATTEND Hospitalist
PROC: 8E0ZXY6 Isolation (ICD-10-PCS; principal; 2022-04-30)
PROC: XW033E5 Introduction of Remdesivir Anti-infective into Peripheral Vein, Percutaneous Approach, New Technology Group 5 (ICD-10-PCS; 2022-04-30)
DX: U07.1 COVID-19 (principal); J12.82 Pneumonia due to coronavirus disease 2019; J96.21 Acute and chronic respiratory failure with hypoxia; J44.0 Chronic obstructive pulmonary disease with (acute) lower respiratory infection; E78.00 Pure hypercholesterolemia, unspecified; I10 Essential (primary) hypertension; F32.A Depression, unspecified; M54.30 Sciatica, unspecified side; Z87.891 Personal history of nicotine dependence; Z88.2 Allergy status to sulfonamides; Z79.899 Other long term (current) drug therapy; Z95.5 Presence of coronary angioplasty implant and graft; Z79.51 Long term (current) use of inhaled steroids
CPT/HCPCS: 36415; 36416; 71045; 80048; 80053; 80076; 83605; 83735; 83880; 84484; 85025; 85610; 85730; 87040; 93005; 93010; 94640; 94760; 96361; 96365; 96367; 96375; J0248; J0692; J1100; J1650; J2930; J3370-JW; J3475; J7050; J7620; Q0162; S0179